=== PATIENT | female | born 1990 | race Two or more races ===

== ENCOUNTER 2017-06-21 22:54 | Emergency (ER) | payer OTHER ==
[2017-06-21 23:26] LABS: URINE HCG POC HCG NEGATIVE (Negative)
[2017-06-21 23:27] LABS: BILIRUBIN,URINE SMALL (NEG); CLARITY,URINE CLOUDY; COLOR,URINE AMBER; GLUCOSE,URINE NEGATIVE (NEG); NITRITE,URINE NEGATIVE (NEG); PH,URINE 5.5; PROTEIN,URINE 30 mg/dL (NEG-TRACE); UROBILINOGEN,URINE 0.2 mg/dL (0.2 mg/dL)
[2017-06-21 23:34] LABS: BACTERIA,URINE MANY /HPF (0-FEW); RBC,URINE OCC /HPF (0-2); SQUAMOUS EPITHELIAL CELL,UR MOD /LPF
[2017-06-21] MEDS: IV NORMAL SALINE 1000ML BAG 1,000 ML IV (23:40)
[2017-06-21 23:52] LABS: BASO % 0 % (0-3); EOS % 0 % (0-3); HEMATOCRIT 43.5 % (36.0-47.0); HEMOGLOBIN 14.9 g/dL (12.0-15.5); LYMPH # 0.4 x10^3/uL (1.0-4.8); LYMPH % 2 % (24-48); MEAN CORPUSCULAR HEMOGLOBIN 30 pg (25-35); MEAN CORPUSCULAR HGB CONC 34 g/dL (31-37); MEAN CORPUSCULAR VOLUME 87 fL (79-100); MONO # 0.4 x10^3/uL (0.0-1.1); MONO % 2 % (0-9); NEUT # 17.2 x10^3uL (1.8-7.7); NEUT % 95 % (31-73); PLATELET COUNT 359 x10^3/uL (140-400); RED CELL DISTRIBUTION WIDTH 13.8 % (11.5-14.5); WHITE BLOOD COUNT 18.1 x10^3/uL (4.0-11.0)
[2017-06-21 23:53] LABS: ADD MAN DIFF? YES
[2017-06-22 00:02] LABS: ANION GAP 13 (6-14); BLOOD UREA NITROGEN 16 mg/dL (7-20); BUN/CREATININE RATIO 16 (6-20); CALCIUM 9.4 mg/dL (8.5-10.1); CARBON DIOXIDE 25 mmol/L (21-32); CHLORIDE 101 mmol/L (98-107); GFR 67.6; GLUCOSE 161 mg/dL (70-99); POTASSIUM 4.1 mmol/L (3.5-5.1); SODIUM 139 mmol/L (136-145)
[2017-06-22 00:15] LABS: ALBUMIN 4.4 g/dL (3.4-5.0); ALBUMIN/GLOBULIN RATIO 1.1 (1.0-1.7); ALK PHOS 96 U/L (46-116); ALT (SGPT) 30 U/L (14-59); AST (SGOT) 33 U/L (15-37); LIPASE 66 U/L (73-393); TOTAL BILIRUBIN 0.6 mg/dL (0.2-1.0); TOTAL PROTEIN 8.4 g/dL (6.4-8.2)
[2017-06-22 00:35] LABS: % BANDS 7 % (0-9); % LYMPHS 2 % (24-48); % MONOS 2 % (0-10); % SEGS 89 % (35-66)
[2017-06-22 00:36] LABS: PLT ESTIMATE ADEQUATE (ADEQUATE)
[2017-06-22] MEDS ORDERED: CONTRAST GIVEN MC (00:45)
[2017-06-22] MEDS: IOHEXOL 300 MG/ML 100ML VIAL. IV (01:15)
== END 2017-06-22 01:57 | disposition home or self-care (01) ==
LOC: ER 22:54
DX: K52.9 Noninfective gastroenteritis and colitis, unspecified (principal); E86.0 Dehydration; B34.9 Viral infection, unspecified; R73.9 Hyperglycemia, unspecified; D72.829 Elevated white blood cell count, unspecified
CPT/HCPCS: 36415; 74177; 80053; 81001; 81025; 83690; 85007; 85025; 93005; 96360; 99285-25; J7030; Q9967